=== PATIENT | female | born 1955 | race Caucasian/White ===

== ENCOUNTER → 2020-12-16 | Outpatient (CLI) | payer MEDICARE ==
--- NOTE | 2020-12-16 13:42 | REP ---
INDICATION: CHEST PAIN. COMPARISON: None TECHNIQUE: Five views of the ribs with frontal view chest FINDINGS: Multiple views of the right ribs show no fracture or osseous lesion. The accompanying frontal view of the chest shows no cardiomegaly, infiltrates, effusions, or pneumothoraces. IMPRESSION: Negative right rib series. <Electronically signed by Vaughn Pompa > 12/16/20 [id number]
== END ==
LOC: M WUC 13:11
PROVIDERS: ATTEND Nurse Practitioner Family
DX: R07.9 Chest pain, unspecified (principal); W01.10XA Fall on same level from slipping, tripping and stumbling with subsequent striking against unspecified object, initial encounter